=== PATIENT | female | born 1960 | race Caucasian/White ===

== ENCOUNTER 2020-07-15 08:02 | Day surgery (SDC) | payer MEDICAID ==
[~2020-07-15] VITALS: Ht 170.2 cm; Wt 55.6 kg
[2020-07-15 08:10] VITALS: BP 140/88
[2020-07-15] MEDS ORDERED: ibuprofen PO (08:51)
[2020-07-15] MEDS ORDERED: ASPI-1265 PO (08:51)
[2020-07-15] MEDS ORDERED: CHL4T PO (08:51)
[2020-07-15] MEDS ORDERED: PROM25TA14 PO (08:51)
[2020-07-15] MEDS ORDERED: BACL-11 PO (08:51)
[2020-07-15] MEDS ORDERED: DIPH-1055 PO (08:51)
[2020-07-15] MEDS ORDERED: ROSU20TA2 PO (08:51)
[2020-07-15] MEDS ORDERED: HYDR25TA5 PO (08:51)
[2020-07-15] MEDS ORDERED: DEC4T PO (08:51)
[2020-07-15] MEDS ORDERED: FLUT16SP2 BOTHNARES (08:51)
[2020-07-15] MEDS ORDERED: POTA8CAP20 PO (08:51)
[2020-07-15] MEDS ORDERED: CBD gummies PO (08:51)
[2020-07-15] MEDS ORDERED: SUMATRIPTAN PO (08:51)
[2020-07-15] MEDS ORDERED: PROC10TA10 PO (08:51)
[2020-07-15] MEDS ORDERED: norco 10/325 PO (08:51)
[2020-07-15] MEDS ORDERED: PER5325T PO (08:51)
[2020-07-15] MEDS ORDERED: folic acid PO (08:51)
[2020-07-15] MEDS ORDERED: ONDA8TAB65 PO (08:51)
[2020-07-15] MEDS ORDERED: MAGN200T5 PO (08:51)
[2020-07-15] MEDS ORDERED: DILT-94 PO (08:51)
[2020-07-15 09:30] VITALS: BP 149/53
[2020-07-15 09:45] VITALS: BP 105/69
[2020-07-15 10:00] VITALS: BP 120/72
[2020-07-15 10:15] VITALS: BP 111/73
[2020-07-15 10:30] VITALS: BP 121/75
== END 2020-07-15 11:02 | disposition home or self-care (01) ==
LOC: SSTAY O 08:02
PROVIDERS: ATTEND Radiology Diagnostic Radiology
DX: J90 Pleural effusion, not elsewhere classified (principal); I10 Essential (primary) hypertension; E78.00 Pure hypercholesterolemia, unspecified; Z87.11 Personal history of peptic ulcer disease; Z98.41 Cataract extraction status, right eye; Z98.42 Cataract extraction status, left eye; M54.30 Sciatica, unspecified side; G43.909 Migraine, unspecified, not intractable, without status migrainosus; Z20.822 Contact with and (suspected) exposure to COVID-19; Z85.118 Personal history of other malignant neoplasm of bronchus and lung; Z88.0 Allergy status to penicillin; Z88.5 Allergy status to narcotic agent; Z88.8 Allergy status to other drugs, medicaments and biological substances; Z79.82 Long term (current) use of aspirin; Z79.899 Other long term (current) drug therapy
CPT/HCPCS: 32555; 87635; C9803; 49083

== ENCOUNTER 2020-08-18 07:42 | Inpatient (IN) | payer MEDICAID ==
[~2020-08-18] VITALS: Ht 170.2 cm; Wt 68.2 kg
[~2020-08-18 07:42] MED LIST: ASPI-1265 PO; BACL-11 PO; CBD gummies PO; CHL4T PO; DEC4T PO; DILT-94 PO; DIPH-1055 PO; FLUT16SP2 BOTHNARES; HYDR25TA5 PO; MAGN200T5 PO; ONDA8TAB65 PO; PER5325T PO; POTA8CAP20 PO; PROC10TA10 PO; PROM25TA14 PO; ROSU20TA2 PO; SUMATRIPTAN PO; folic acid PO; ibuprofen PO; norco 10/325 PO
--- NOTE | 2020-08-18 08:11 | NUR ---
DIAGNOSTIC TECH AT BEDSIDE.
[2020-08-18] MEDS ORDERED: morphine 4 MG/ML inj SYRINge IV ONE (09:00)
[2020-08-18 09:50] LABS: ALANINE AMINOTRANSFERASE 27 U/L (12-78); ALBUMIN 2.7 G/DL (3.4-5.0); ALBUMIN/GLOBULIN RATIO 0.6 (1.1-1.5); ALKALINE PHOSPHATASE 390 IU/L (46-116); ANION GAP 9 (8-16); ASPARTATE AMINO TRANSFERASE 36 U/L (10-37); BILIRUBIN,TOTAL 0.2 MG/DL (0.1-1.0); BLOOD UREA NITROGEN 13 MG/DL (7-18); BUN/CREATININE RATIO 19.4 (6.6-38.0); CALCIUM 8.6 MG/DL (8.5-10.1); CHLORIDE 95 MMOL/L (99-107); CREATININE 0.67 MG/DL (0.40-0.90); GLUCOSE 110 MG/DL (70-104); POTASSIUM 4.4 MMOL/L (3.5-5.1); SODIUM 132 MMOL/L (135-145); TOTAL CARBON DIOXIDE 27.9 MMOL/L (24-32); TOTAL PROTEIN 7.4 G/DL (6.4-8.2); eGFR 90 ML/MIN
[2020-08-18 09:52] LABS: BASOPHILS # (AUTO) 0.1 X10'3 (0-0.2); BASOPHILS % (AUTO) 0.7 % (0-1); EOSINOPHILS % (AUTO) 0.3 % (0-6); HEMATOCRIT 24.8 % (35.0-45.0); HEMOGLOBIN 7.8 g/dl (12.0-16.0); LYMPHOCYTES % (AUTO) 7.3 % (21-51); MEAN CORPUSCULAR HEMOGLOBIN 26.6 PG (27.0-31.0); MEAN CORPUSCULAR HGB CONC 31.4 g/dL (33.0-36.5); MEAN CORPUSCULAR VOLUME 84.7 FL (78-98); MEAN PLATELET VOLUME 8.5 FL (7.4-10.4); MONOCYTES # (AUTO) 2.4 X10'3 (0-0.9); MONOCYTES % (AUTO) 17.4 % (2-12); NEUTROPHILS # (AUTO) 10.2 X10'3 (1.8-7.7); NEUTROPHILS % (AUTO) 74.3 % (42-75); PLATELET COUNT 461 X10'3 (140-440); RED BLOOD COUNT 2.93 X10'6 (4.20-5.60); RED CELL DISTRIBUTION WIDTH 23.8 % (11.5-14.5); WHITE BLOOD COUNT 13.7 X10'3 (4.5-11.0)
[2020-08-18] MEDS ORDERED: bisacodyl 10mg suppository rectal RC PRN (09:55)
[2020-08-18] MEDS ORDERED: magnesium Cl slow-release 64mg tablet PO PRN (09:55)
[2020-08-18] MEDS ORDERED: magnesium 4gm in 100ml NS 100 ML IV PRN (09:55)
[2020-08-18] MEDS ORDERED: potassium Cl 20 mEq SR tablet PO PRN ×2 (09:55)
[2020-08-18] MEDS ORDERED: acetaminophen 650mg rectal suppository RC PRN (09:55)
[2020-08-18] MEDS ORDERED: magnesium hydroxide 30ml (MOM) UD suspension PO PRN (09:55)
[2020-08-18] MEDS ORDERED: acetaminophen 325mg tablet PO PRN (09:55)
[2020-08-18] MEDS ORDERED: mag hydrox/Alum hydrox/simeth 30ml oral suspension PO PRN (09:55)
[2020-08-18] MEDS ORDERED: diphenhydrAMINE 25mg capsule PO PRN (09:55)
[2020-08-18] MEDS ORDERED: ondansetron/PF 4mg/2ml inj IV PRN (09:55)
[2020-08-18] MEDS ORDERED: magnesium 2GM in 50ml NS 50 ML IV PRN (09:55)
[2020-08-18] MEDS ORDERED: potassium Cl 40MEQ/1/2NS 520ml 520 ML IV PRN ×2 (09:55)
[2020-08-18 10:02] LABS: PARTIAL THROMBOPLASTIN TIME 32 SECONDS (22-32)
[2020-08-18 11:06] LABS: HEMOGLOBIN A1C 5.8 % (4.5-6.2)
[2020-08-18 11:31] LABS: TOTAL CELLS COUNTED 100
[2020-08-18 11:33] LABS: ANISOCYTOSIS 3+; PLATELET ESTIMATE INCREASED
[2020-08-18 11:34] LABS: LARGE PLATELETS FEW; MICROCYTOSIS 1+
[2020-08-18] MEDS ORDERED: POTA10TA36 PO (12:31)
[2020-08-18] MEDS ORDERED: FOLI0.8C PO (12:31)
[2020-08-18] MEDS ORDERED: ZOLP5TAB8 PO (12:37)
[2020-08-18] MEDS ORDERED: GABA300C PO (12:37)
[2020-08-18] MEDS ORDERED: PEMB100V IV (12:37)
[2020-08-18] MEDS ORDERED: PEME100V IV (12:37)
[2020-08-18] MEDS ORDERED: ENOX60DI10 SQ (12:37)
[2020-08-18] MEDS ORDERED: [UNRECOGNIZED DRUG - CODE] IV (12:37)
[2020-08-18 13:00] VITALS: BP 142/79
[2020-08-18 14:21] VITALS: BP 117/71
[2020-08-18 14:42] VITALS: BP 98/58
[2020-08-18 15:55] LABS: BFAPPEAR HAZY
[2020-08-18 15:56] LABS: BF RBC COUNT 565 /CU MM; BF WBC COUNT 2060 /CU MM (0-1000); BFCOLOR YELLOW; BFVOLUME 63 ML
[2020-08-18 16:04] LABS: BFSOURCE LEFT PLEURAL FLD; PLEURAL FLUID PH 7.439 (7.63-7.65)
[2020-08-18 16:10] LABS: GLUCOSE,BODY FLUID 112 MG/DL; LDH,BODY FLUID 261 U/L; TOTAL PROTEIN,BODY FLUID 3.2 G/DL
[2020-08-18 16:18] LABS: BF MESOTHELIAL CELLS FEW; LYMPHOCYTES,BODY FLUID 73 %; MONOCYTES,BODY FLUID 2 %; NEUTROPHILS,BODY FLUID 25 %
[2020-08-18 16:19] LABS: OTHER CELLS,BODY FLUID PLASMA CELLS
[2020-08-18 16:23] LABS: BF UNCLASSIFIED CELLS FEW
[2020-08-18 16:44] VITALS: BP 119/70
[2020-08-18 18:00] VITALS: BP 119/71
[2020-08-18] MEDS: K and/or MAG REPLACEMENT MC SCH (19:45)
[2020-08-18] MEDS ORDERED: dexamethasone 4mg tablet PO PRN (20:15)
[2020-08-18] MEDS ORDERED: oxyCODONE/APAP 5-325mg tablet PO PRN (20:15)
[2020-08-18] MEDS ORDERED: proCHLORperazine 10mg tablet PO PRN (20:15)
[2020-08-18] MEDS ORDERED: ondansetron 4mg rapidly disintigrating tab PO PRN (20:15)
[2020-08-18] MEDS ORDERED: zolpidem 5mg tablet PO PRN (20:15)
[2020-08-18] MEDS ORDERED: proMETHazine 25mg tablet PO PRN (20:15)
[2020-08-18] MEDS: oxyCODONE/APAP 10/325mg tablet PO PRN (20:30)
[2020-08-18] MEDS ORDERED: diltiazem CD 120mg capsule (once-daily) PO SCH (21:00)
[2020-08-18] MEDS ORDERED: non-formulary drug (Diltiazem HCl (Diltiazem 24Hr ER) 1 CAP) PO SCH (21:00)
[2020-08-18] MEDS: magnesium oxide 400mg tablet PO SCH (21:09)
[2020-08-18 22:00] VITALS: BP 128/67
[2020-08-18] MEDS: gabapentin 300mg capsule PO SCH (23:52)
[2020-08-19 02:00] VITALS: BP 106/70
--- NOTE | 2020-08-19 05:58 | NUR ---
Problems reprioritized. Patient report given, questions answered & plan of care reviewed with ANH PEREYRA.
--- NOTE | 2020-08-19 06:00 | NUR ---
Patient in room PCU 3022. I have received report from BROOKE KAMARA and had the opportunity to ask questions and assume patient care.
[2020-08-19 06:53] LABS: BASOPHILS # (AUTO) 0.1 X10'3 (0-0.2); BASOPHILS % (AUTO) 0.5 % (0-1); EOSINOPHILS # (AUTO) 0.1 X10'3 (0-0.9); EOSINOPHILS % (AUTO) 0.6 % (0-6); HEMATOCRIT 27.3 % (35.0-45.0); HEMOGLOBIN 8.6 g/dl (12.0-16.0); LYMPHOCYTES % (AUTO) 6.5 % (21-51); MEAN CORPUSCULAR HEMOGLOBIN 26.8 PG (27.0-31.0); MEAN CORPUSCULAR HGB CONC 31.4 g/dL (33.0-36.5); MEAN CORPUSCULAR VOLUME 85.4 FL (78-98); MONOCYTES # (AUTO) 1.9 X10'3 (0-0.9); MONOCYTES % (AUTO) 12.3 % (2-12); NEUTROPHILS # (AUTO) 12.2 X10'3 (1.8-7.7); NEUTROPHILS % (AUTO) 80.1 % (42-75); PLATELET COUNT 584 X10'3 (140-440); RED CELL DISTRIBUTION WIDTH 23.3 % (11.5-14.5); WHITE BLOOD COUNT 15.2 X10'3 (4.5-11.0)
[2020-08-19 06:58] VITALS: BP 114/73
[2020-08-19 07:22] LABS: ALANINE AMINOTRANSFERASE 22 U/L (12-78); ALBUMIN 2.4 G/DL (3.4-5.0); ALBUMIN/GLOBULIN RATIO 0.5 (1.1-1.5); ALKALINE PHOSPHATASE 349 IU/L (46-116); ANION GAP 7 (8-16); ASPARTATE AMINO TRANSFERASE 29 U/L (10-37); BILIRUBIN,TOTAL 0.3 MG/DL (0.1-1.0); BLOOD UREA NITROGEN 12 MG/DL (7-18); BUN/CREATININE RATIO 19.4 (6.6-38.0); CALCIUM 8.7 MG/DL (8.5-10.1); CHLORIDE 94 MMOL/L (99-107); CHOL/HDL RATIO 4.2 (0.00-4.99); CHOLESTEROL 155 MG/DL (0-200); CREATININE 0.62 MG/DL (0.40-0.90); GLUCOSE 95 MG/DL (70-104); HDL CHOLESTEROL 37 MG/DL (35-60); LDL CHOLESTEROL 93 MG/DL (50-100); MAGNESIUM 2.3 MG/DL (1.5-2.4); PHOSPHORUS 3.8 MG/DL (2.3-4.5); POTASSIUM 4.2 MMOL/L (3.5-5.1); SODIUM 132 MMOL/L (135-145); TOTAL CARBON DIOXIDE 30.9 MMOL/L (24-32); TOTAL PROTEIN 6.9 G/DL (6.4-8.2); TRIGLYCERIDES 96 MG/DL (20-135); eGFR > 90 ML/MIN
[2020-08-19 07:47] LABS: ANISOCYTOSIS 3+; LARGE PLATELETS FEW; MICROCYTOSIS 1+; PLATELET ESTIMATE INCREASED; TOTAL CELLS COUNTED 100
[2020-08-19 07:48] LABS: POLYCHROMASIA 1+; TARGET CELLS FEW
[2020-08-19] MEDS ORDERED: HYDROchlorothiazide 25mg tablet PO SCH (08:00)
[2020-08-19] MEDS ORDERED: enoxaparin 60mg/0.6ml syringe SUBCUT SCH (08:00)
[2020-08-19] MEDS: K and/or MAG REPLACEMENT MC SCH (08:00)
[2020-08-19] MEDS ORDERED: folic acid 1mg tablet PO SCH (08:00)
[2020-08-19] MEDS: magnesium oxide 400mg tablet PO SCH (08:27)
[2020-08-19] MEDS: gabapentin 300mg capsule PO SCH (08:27)
[2020-08-19] MEDS: oxyCODONE/APAP 10/325mg tablet PO PRN (08:28)
[2020-08-19] MEDS ORDERED: LEVO500T89 PO (09:51)
[2020-08-19] MEDS ORDERED: ALBU8.5H8 INH (09:52)
[2020-08-19] MEDS ORDERED: levoFLOXACIN 750MG TABLET PO ONE (09:55)
[2020-08-19 12:59] VITALS: BP 102/63
--- NOTE | 2020-08-19 13:05 | NUR ---
pt received dc instructions and verbalized understanding of dc instructions, IV and heart monitor where removed intact, pt was wheeled to lobby in zero distress.
[2020-08-23] MEDS ORDERED: [UNRECOGNIZED DRUG - OTHER] IV SCH (08:00)
[2020-08-23] MEDS ORDERED: CISPLATIN IV SCH (08:00)
[2020-08-23] MEDS ORDERED: [UNRECOGNIZED DRUG - OTHER] IV SCH (08:00)
[2020-08-23] MEDS ORDERED: PEMBROLIZUMAB 200 MG IV SCH (08:00)
[2020-08-23] MEDS ORDERED: PEMETREXED DISODIUM IV SCH (08:00)
[2020-08-23] MEDS ORDERED: CHEMO IV SCH (08:00)
== END 2020-08-19 13:05 | disposition home or self-care (01) | DRG 133 ==
LOC: ER 07:43 → ED HOLD 09:54 → PCU 3S 13:11
PROVIDERS: ADMIT Family Medicine; ATTEND Family Medicine
PROC: 0W9B3ZZ Drainage of Left Pleural Cavity, Percutaneous Approach (ICD-10-PCS; principal; 2020-08-19)
PROC: 0W993ZZ Drainage of Right Pleural Cavity, Percutaneous Approach (ICD-10-PCS; 2020-08-19)
DX: J96.20 Acute and chronic respiratory failure, unspecified whether with hypoxia or hypercapnia (principal); E78.00 Pure hypercholesterolemia, unspecified; E78.5 Hyperlipidemia, unspecified; F17.210 Nicotine dependence, cigarettes, uncomplicated; I10 Essential (primary) hypertension; Z20.822 Contact with and (suspected) exposure to COVID-19; Z96.643 Presence of artificial hip joint, bilateral; Z79.01 Long term (current) use of anticoagulants; Z80.0 Family history of malignant neoplasm of digestive organs; Z85.118 Personal history of other malignant neoplasm of bronchus and lung; Z86.711 Personal history of pulmonary embolism; Z99.3 Dependence on wheelchair; Z88.0 Allergy status to penicillin; Z88.5 Allergy status to narcotic agent
CPT/HCPCS: 32555; 36415; 71045; 80053; 80061; 82945; 83036; 83615; 83735; 83986; 84100; 84157; 85007; 85025; 85610; 85730; 87070; 87635; 89051; 93005; 96374; 99285; G0378; J1650; J2270

== ENCOUNTER 2020-08-24 12:39 | Outpatient (CLI) | payer MEDICAID ==
[~2020-08-24 12:39] MED LIST changes: +ALBU8.5H8 INH; -ASPI-1265 PO; -BACL-11 PO; -CHL4T PO; -DIPH-1055 PO; +ENOX60DI10 SQ; -FLUT16SP2 BOTHNARES; +FOLI0.8C PO; +GABA300C PO; +LEVO500T89 PO; +PEMB100V IV; +PEME100V IV; +POTA10TA36 PO; -POTA8CAP20 PO; -ROSU20TA2 PO; -SUMATRIPTAN PO; +ZOLP5TAB8 PO; +[UNRECOGNIZED DRUG - CODE] IV; -folic acid PO; -ibuprofen PO; -norco 10/325 PO
== END 2020-08-24 23:59 | disposition home or self-care (01) ==
LOC: CARD DIAG 12:39
PROVIDERS: ATTEND Internal Medicine Hematology & Oncology
DX: I08.3 Combined rheumatic disorders of mitral, aortic and tricuspid valves (principal)
CPT/HCPCS: 93306